=== PATIENT | male | born 1995 | race American Indian/Alaskan Native ===

== ENCOUNTER 2018-03-29 10:33 | Emergency (ER) | payer SELFPAY ==
[2018-03-29] MEDS ORDERED: ALUM-MAG HYDROX-SIMETH 200-200-20MG/5ML PO ONE (11:16)
[2018-03-29] MEDS ORDERED: LIDOCAINE VISCOUS 2% PO ONE (11:16)
[2018-03-29] MEDS ORDERED: PEPCID PO ONE (11:17)
--- NOTE | 2018-03-29 11:17 | Emergency Department Report ---
Minor Respiratory - HPI Chief Complaint: Upper Respiratory Infection Stated Complaint: CHEST PAIN/BACK PAIN/VOMITING Time Seen by Provider: 03/29/18 11:07 Duration: 5 Days Pain Location: Chest, Other Severity: moderate Minor Respiratory: Yes Able to Tolerate Fluids, Yes Cough, No Rhinorrhea, No Sore Throat, No Ear Pain, No Sick Contacts, No Hemoptysis, No Chest Pain, No Shortness of Breath, No Fever Other History: Patient is a 22-year-old male who comes to the emergency room complaining of a cough for over a month. He states that the cough is after he eats, because he gets a burning in his chest and makes him cough. He states that every now and then he will vomit after he eats. Patient does not understand on interview the concept of heartburn and GERD. He is emphatic that there is something while this month. Note that the patient was here in January and treated with a course of Bactrim for 10 days: As well as Flonase and Zyrtec and got no better. ED Review of Systems ROS: Stated complaint: CHEST PAIN/BACK PAIN/VOMITING Other details as noted in HPI Comment: All other systems reviewed and negative Constitutional: denies: chills, fever Eyes: denies: eye pain ENT: denies: ear pain Respiratory: see HPI, cough Cardiovascular: as per HPI, other (BURNING IN CHEST P HE EATS). denies: palpitations Endocrine: denies: excessive sweating Gastrointestinal: as per HPI, nausea, vomiting. denies: abdominal pain Genitourinary: denies: urgency Musculoskeletal: denies: back pain Skin: denies: rash Neurological: denies: weakness Psychiatric: denies: depression Hematological/Lymphatic: denies: easy bleeding ED Past Medical Hx - Past Medical History Previous Medical History?: No - Surgical History Past Surgical History?: No - Family History Family history: no significant - Social History Smoking Status: Never Smoker Substance Use Type: None - Medications Home Medications: Home Medications Medication Instructions Recorded Confirmed Last Taken Type Famotidine [Pepcid] 20 mg PO BID #60 tablet 03/29/18 Unknown Rx Minor Respiratory Exam - Exam General: Vital signs noted. No distress. Alert and acting appropriately. HEENT: Yes Moist Mucous Membranes, No Pharyngeal Erythema, No Pharyngeal Exudates, No Rhinorrhea, No Conjuctival Injection, No Frontal Tenderness, No Maxillary Tenderness Ear: Neither TM Bulge, Neither TM Erythema, Neither EAC Pain, Neither EAC Discharge Neck: Yes Supple, No Adenopathy Lungs: Yes Good Air Exchange, No Wheezes, No Ronchi, No Stridor, No Cough, No Labored Respirations, No Retractions, No Use of Accessory Muscles, No Other Abnormal Lung Sounds Heart: Yes Regular, No Murmur Abdomen: Yes Normal Bowel Sounds, No Tenderness, No Peritoneal Signs Skin: No Rash, No Edema Neurologic: Alert and oriented, no deficits. Musculoskeletal: Unremarkable. ED Course Vital Signs 03/29/18 10:41 Temperature 98.6 F Pulse Rate 109 H Respiratory 20 Rate Blood Pressure 131/74 O2 Sat by Pulse 97 Oximetry ED Medical Decision Making - Radiology Data Radiology results: image reviewed interpreted by me: NAP - Medical Decision Making NON TOXIC NO FEVER HR 90 ON EXAM ABD SNT LUNGS CTA XRAY NOTED EMR REVIEWED FROM LAST VISIT IN 02/10- TX WITH BACTRIM X 10 DAY PT DID NOT FOLLOW UP I SUSPECT THIS IS GERD CAUSING PTS COUGH PT EDUCATED MEDICATED WITH GI COCKTAIL WITH RELIEF DC HOME W DC POC AND GI FOLLOW UP - Differential Diagnosis COUGH- RESP V GI ORIGIN Critical care attestation.: If time is entered above; I have spent that time in minutes in the direct care of this critically ill patient, excluding procedure time. ED Disposition Clinical Impression: GERD (gastroesophageal reflux disease) Disposition: DC- TO HOME OR SELFCARE Is pt being admited?: No Does the pt Need Aspirin: No Condition: Stable Instructions: Gastroesophageal Reflux Disease (ED) Additional Instructions: PAY ATTENTION TO WHAT YOU EAT AND YOUR SYMPTOMS MED ORDERED TODAY YOUR CHEST XRAY IS NORMAL I SUSPECT THE ORIGIN OF YOUR PROBLEMS IS FROM YOUR STOMACH FOLLOW UP WITH A GI MD VERO REFERRAL BELOW DIET BLAND AND TOLERATED AVOID ALCOHOL AND SPICY FOOD; AVOID CAFFEINE ACTIVITY TOLERATED HYDRATE WELL WITH WATER Prescriptions: Famotidine [Pepcid] 20 mg PO BID #60 tablet Referrals: RAYNA COREY [Primary Care Provider] - 3-5 Days SEVERINO GILMORE MD [Staff Physician] - 3-5 Days Time of Disposition: 12:07
[2018-03-29] MEDS ORDERED: ALUM-MAG HYDROX-SIMETH 200-200-20MG/5ML ONE (12:02)
[2018-03-29] MEDS ORDERED: LIDOCAINE VISCOUS 2% ONE (12:03)
[2018-03-29] MEDS ORDERED: PEPCID ONE (12:03)
--- NOTE | 2018-03-29 13:13 | XRay Report ---
FINAL REPORT PROCEDURE: XR CHEST ROUTINE 2V TECHNIQUE: PA and lateral chest radiographs were obtained. CPT 41175 HISTORY: cough x 1 m COMPARISON: No prior studies are available for comparison. FINDINGS: Heart: Normal. Mediastinum/Vessels: Normal. Lungs/Pleural space: No infiltrate, effusion, or pneumothorax. Bony thorax: No acute osseous abnormality. Other: IMPRESSION: No pulmonary infiltrates are identified.
[2018-03-29 15:28] VITALS: BP 131/74
== END 2018-03-29 12:22 | disposition home or self-care (01) ==
LOC: ED 10:33
DX: K21.9 Gastro-esophageal reflux disease without esophagitis (principal); R11.2 Nausea with vomiting, unspecified
CPT/HCPCS: 71046; 99283